=== PATIENT | male | born 1990 | race Caucasian/White ===

== ENCOUNTER 2017-09-05 16:34 | Emergency (ER) | payer OTHER ==
[~2017-09-05] VITALS: Ht 180.3 cm; Wt 60.0 kg
[~2017-09-05 16:34] MED LIST: PENI500T PO
[2017-09-05 16:58] VITALS: BP 114/68; PULSE 72; RESP 16; TEMP 98.4; O2SAT 98
[2017-09-05] MEDS ORDERED: ZOLO50TA PO (17:02)
[2017-09-05] MEDS ORDERED: TRAM50TA PO (17:02)
--- NOTE | 2017-09-05 17:57 | PD ---
HPI Chief Complaint: Psychiatric Symptoms Time Seen by Provider: 17:33 Travel History International Travel<30 days: No Contact w/Intl Traveler<30days: No Traveled to known affect area: No History of Present Illness HPI 27-year-old male presents from [facility] under Bello act for suicidal ideation and depression. According to the Bello act reports the patient "states doesn't want to live anymore and feels like he is the burden on his family." Patient states that he is feeling suicidal. He has a plan to hang himself. He has history of suicidal attempt by overdosing on acetaminophen. Denies homicidal ideation. Denies auditory or visual hallucinations. Reports opioid abuse and cocaine use. Reports occasional alcohol use. Onset of symptoms were today. Duration unknown. Aggravated by withdrawal from opioids. Reports generalized body aches from his withdrawals. No known relieving or aggravating factors. Denies emergent medical complaints at this time. Denies chest, shortness of breath, abdominal pain, nausea, vomiting, fevers. No primary care provider. Allergies to aspirin, Tylenol, propoxyphene. Has an established primary care provider. Reports history of depression and takes medications. Has no other medical complaints. No other modifying factors or associated signs and symptoms. PFSH Past Medical History Anxiety: Yes Depression: Yes Diminished Hearing: No Immunizations Current: Yes Past Surgical History Surgical History: No Previous Surgery Social History Alcohol Use: Yes (OCCASIONAL) Tobacco Use: Yes (1 PPD) Substance Use: Yes (COCAINE, OPIATES) Allergies-Medications (Allergen,Severity, Reaction): Coded Allergies: aspirin (Verified Allergy, Unknown, 09/05/17) acetaminophen (Unverified Adverse Reaction, Mild, NAUSEA, 09/05/17) propoxyphene (Unverified Adverse Reaction, Mild, NAUSEA, 09/05/17) Reported Meds & Prescriptions Reported Meds & Active Scripts Active Reported Tramadol (Tramadol HCl) 50 Mg Tab 50 Mg PO BID PRN Zoloft (Sertraline HCl) 50 Mg Tab 50 Mg PO DAILY Review of Systems Except as stated in HPI: all other systems reviewed are Neg Physical Exam Narrative GENERAL: Well-nourished, well-developed male patient, in no acute distress SKIN: Warm and dry. HEAD: Atraumatic. Normocephalic. EYES: Pupils equal and round. ENT: Mucosa pink and moist. NECK: Supple. Trachea midline. CARDIOVASCULAR: Regular rate and rhythm. No murmur appreciated. 3+ radial pulses. RESPIRATORY: No accessory muscle use. Clear to auscultation. Breath sounds equal bilaterally. GASTROINTESTINAL: Abdomen soft, non-tender, nondistended. Hepatic and splenic margins not palpable. Bowel sounds are active 4 quadrants. MUSCULOSKELETAL: No obvious deformities. No clubbing. No cyanosis. No edema. NEUROLOGICAL: Awake and alert. Oriented 3. No obvious cranial nerve deficits. Motor grossly within normal limits. Normal speech. Moves all extremities. 5/5 strength to all extremities. PSYCHIATRIC: No delusional thought processes. No hallucinations. Data Data Last Documented VS Vital Signs Date Time Temp Pulse Resp B/P (MAP) Pulse Ox O2 Delivery O2 Flow Rate FiO2 09/05/17 16:58 98.4 72 16 114/68 (83) 98 Orders Orders Complete Blood Count With Diff (09/05/17 17:33) Comprehensive Metabolic Panel (09/05/17 17:33) Thyroid Stimulating Hormone (09/05/17 17:33) Psych Screen (09/05/17 17:33) Drug Screen, Random Urine (09/05/17 17:33) Alcohol (Ethanol) (09/05/17 17:33) Salicylates (Aspirin) (09/05/17 17:33) Tylenol (Acetaminophen) (09/05/17 17:33) Diet Regular Basic (09/05/17 Dinner) MDM Medical Decision Making Medical Screen Exam Complete: Yes Emergency Medical Condition: Yes Medical Record Reviewed: Yes Differential Diagnosis Suicidal ideation, depression, medical clearance for psychological evaluation Narrative Course Patient presents under a Bello act. Physical examination and vital signs are essentially unremarkable. Patient has no medical complaints to report. Psych screen has been ordered. If the laboratory results are unremarkable, the patient will be medically cleared for psychiatric evaluation and disposition. Diagnosis Primary Impression: Encounter for psychological evaluation Condition: Stable Anabel Humphrey Sep 05, 2017 17:57
[2017-09-05 18:40] VITALS: BP 111/66; PULSE 52; RESP 20; TEMP 97.9; O2SAT 98
--- NOTE | 2017-09-05 20:09 | PD ---
Physical Exam Date Seen by Provider: Sep 05, 2017 Time Seen by Provider: 20:07 Narrative For full history and physical examination please see previous provider's note. Data Data Last Documented VS Vital Signs Date Time Temp Pulse Resp B/P (MAP) Pulse Ox O2 Delivery O2 Flow Rate FiO2 09/05/17 18:40 97.9 52 20 111/66 (81) 98 Room Air Orders Orders Complete Blood Count With Diff (09/05/17 17:33) Comprehensive Metabolic Panel (09/05/17 17:33) Thyroid Stimulating Hormone (09/05/17 17:33) Psych Screen (09/05/17 17:33) Drug Screen, Random Urine (09/05/17 17:33) Alcohol (Ethanol) (09/05/17 17:33) Salicylates (Aspirin) (09/05/17 17:33) Tylenol (Acetaminophen) (09/05/17 17:33) Diet Regular Basic (09/05/17 Dinner) MDM Medical Record Reviewed: Yes Supervised Visit with KAREEM: No Interpretation(s) Vital Signs Date Time Temp Pulse Resp B/P (MAP) Pulse Ox O2 Delivery O2 Flow Rate FiO2 09/05/17 18:40 97.9 52 20 111/66 (81) 98 Room Air 09/05/17 16:58 98.4 72 16 114/68 (83) 98 Differential Diagnosis Depression versus suicidal ideations versus metabolic abnormality versus substance abuse versus other Narrative Course Patient was seen and evaluated at [facility], he was transferred to [place] for psychiatric evaluation. Medical records reviewed, patient was positive for cocaine, he had an alcohol level 247. He was given a liter of IV fluids at [facility]. Patient is medically cleared for psychiatric evaluation at this time. Diagnosis Primary Impression: Encounter for psychological evaluation Condition: Maddie Matos Sep 05, 2017 20:09
[2017-09-05 22:11] VITALS: BP 114/62; PULSE 57; RESP 18; TEMP 97.7; O2SAT 99
[2017-09-06 02:29] VITALS: BP 107/59; PULSE 53; RESP 16; TEMP 97.5; O2SAT 97
== END 2017-09-06 06:33 ==
LOC: NEPJ 16:34
DX: Z04.6 Encounter for general psychiatric examination, requested by authority (principal); F41.9 Anxiety disorder, unspecified; F32.9 Major depressive disorder, single episode, unspecified; R45.851 Suicidal ideations; F11.10 Opioid abuse, uncomplicated; F14.90 Cocaine use, unspecified, uncomplicated; F17.200 Nicotine dependence, unspecified, uncomplicated
CPT/HCPCS: 99284